=== PATIENT | female | born 1985 | race Caucasian/White ===

== ENCOUNTER 2020-03-17 10:53 | Emergency (ER) | payer MEDICAID ==
[~2020-03-17] VITALS: Ht 172.7 cm; Wt 117.9 kg
[2020-03-17 11:25] VITALS: Ht 172.7 cm; Wt 117.9 kg
[2020-03-17 13:22] VITALS: BP 111/52
== END 2020-03-17 13:22 | disposition home or self-care (01) ==
LOC: ED 10:53
DX: M54.5 Low back pain (principal)
CPT/HCPCS: J1885